=== PATIENT | female | born 1975 | race Caucasian/White ===

== ENCOUNTER 2017-06-08 11:15 | Day surgery (SDC) | payer OTHER, SELFPAY ==
[2017-06-08 11:36] VITALS: BP 120/53; PULSE 59; RESP 16; TEMP 36.3; O2SAT 100; BMI 27.4
--- NOTE | 2017-06-08 12:54 | PCM.DC.GS ---
Discharge Diet: No Restrictions Discharge Activity: May not drive while taking narcotic pain medications. May shower in (days): 2 Lifting Restrictions: no lifting >20 lb on right for 1 week Call your doctor if your incision/area has: Continuous Slow Oozing, Sudden Increased Bleeding, Increased Pain/ Swelling, Increased Redness, Foul Smelling Discharge, Swelling at the incision site Call your doctor if you observe: Fever of 101 or Higher Remove Dressing in (days):: 2 - We apply pressure dressing to the area daily for 2-3 more days Allergies/Adverse Reactions: Allergies No Known Allergies Allergy (Verified 06/01/17 08:36) Medications to take at Discharge Oxycodone HCl/Acetaminophen [Percocet 5/325] 1 - 2 tab PO Q6H PRN PRN 2 Days #5 tab 06/08/17 The following prescriptions were given: Oxycodone HCl/Acetaminophen [Percocet 5/325] 1 - 2 tab PO Q6H PRN PRN 2 Days #5 tab PRN Reason: Pain Primary Care Physician: Ryan Patel DO [Primary Care Provider] - Please Follow Up With: Sylvia March MD - After 5 PM and on the weekends call [phone] with any concerns When: Call the office tomorrow for a follow-up appointment in 2 weeks. Proposed Discharge Date: 06/08/17
[2017-06-08] MEDS: Cefazolin 2 GM in 0.9% Normal Saline 100 ML IV (13:00)
--- NOTE | 2017-06-08 13:00 | CYST_PTH ---
PATIENT: THELMA GARCIA [place] [facility] [place]#:[id number] AGE/SX: 41/F ROOM: RE06/08/[address]: Dr. Sylvia March MD : 1975 BED: DIS: 06/08/2017 SPEC #: [id number] RECD: 06/08/17 16:17 STATUS: TOMMY NADIA #: [id number] JUNE: 06/08/17 13:[address]: Sylvia March DEPT: SURGICAL PATHOLOGY RECD BY: James Frank ENTERED: 06/09/17 08:10 SP TYPE: Cyst OTHR DR: Dr. 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 SJ:padmini 06/10/17 MICROSCOPIC DESCRIPTION Slides are reviewed. GROSS DESCRIPTION Received in fixative is one container labeled with the patient's name and designated sebaceous cyst, neck posterior. The specimen consists of a burroughs-white cyst measuring 4.5 x 3.5 x 2.5 cm. Sections reveal the cyst is filled with burroughs-white to yellow cheesy material. Curing Oven Tender sections are submitted in one cassette. / GLORIA:padmini 06/09/17 TC:5 CPT: 87509
[2017-06-08] MEDS: Bupivacaine Mpf 0.5% 30 ML VIAL (13:40)
--- NOTE | 2017-06-08 13:47 | OP.PCM_ITS ---
Report of Operation Date of Procedure: 06/08/17 Pre-Operative Diagnosis: Subcutaneous mass of the right posterior neck Post-Operative Diagnosis: Sebaceous cyst of the right posterior neck Surgery/Procedure Performed:: Excision of sebaceous cyst of the right posterior neck learning and development associate: Julienne Orlando Type of Anesthesia:: MAC Anesthesiologist: Manjit Barrow Special Medications: Ancef 2 g IV ?1 Specimen's removed: Sebaceous cyst of the right posterior neck Estimated Blood Loss (mL): <10 cc Fluids Replaced: 1000 cc Description of Procedure: Patient was brought into the operating room and placed left lateral decubitus on operating table. A time-out was completed verifying correct patient, procedure, site, position and special equipment prior to beginning procedure. MAC anesthesia was induced. Right posterior inferior neck was prepped and draped in usual sterile fashion. Local anesthesia of 1% lidocaine with epinephrine and 0.5% Marcaine and 1:1 mixture was used for a total of 15 mL throughout the procedure. A incision along the lines and linger was planned overlying the subcutaneous mass. Prior to incision this area was infiltrated with local anesthesia. A 15 blade scalpel was used for incision. This was deepened with electrocautery and subcutaneous tissues. Sebaceous cyst was identified - measuring 6 cm x 3 cm x 3.5 cm. Hemostasis was achieved with electrocautery. Wound was irrigated with saline. Incision was closed with subdermal suture of 3-0 Vicryl interrupted and the skin was closed with 4-0 Monocryl interrupted sutures. Gauze and opsite were placed over the incision. Patient tolerated the procedure well and was taken to the postsurgical care unit in stable condition. - Complications none
[2017-06-08 14:08] VITALS: BP 111/61; BP 120/53; PULSE 72; RESP 16; TEMP 36.2; O2SAT 99
[2017-06-08 14:13] VITALS: BP 119/65; BP 120/53; PULSE 70; RESP 16; O2SAT 99
[2017-06-08 14:18] VITALS: BP 113/60; BP 120/53; PULSE 71; RESP 16; O2SAT 99
[2017-06-08 14:21] VITALS: BP 113/63; BP 120/53; PULSE 72; RESP 16; TEMP 36.3; O2SAT 100
[2017-06-08 14:49] VITALS: BP 120/53
== END 2017-06-08 14:55 | disposition home or self-care (01) ==
LOC: SDC 11:20 → AC 11:28
PROVIDERS: Family Provider Family Medicine; PCP Family Medicine; Visit Provider Surgery
PROC: (CPT 11426; principal; 2017-06-08 12:50)
DX: L72.0 Epidermal cyst (principal)
CPT/HCPCS: 11426; 88304; J7120

== ENCOUNTER → 2024-08-23 | Outpatient (CLI) | payer SELFPAY ==
--- NOTE | 2024-08-23 13:20 | US_ITS ---
EXAM: US Retroperitoneal Limited, Renal CLINICAL INDICATION: FLANK PAIN TECHNIQUE: Real-time limited ultrasound of the retroperitoneum with image documentation. COMPARISON: No relevant prior studies available. FINDINGS: RIGHT KIDNEY: Unremarkable. No stones. No hydronephrosis. The right kidney measures 11.2 x 6.7 x 4.5 cm. LEFT KIDNEY: Unremarkable. No stones. No hydronephrosis. The left kidney measures 11.1 x 4.9 x 5.3 cm. BLADDER: Urinary bladder appears normal. Prevoid volume 400 cc. Postvoid volume 106 cc. US/Kidney and Bladder IMPRESSION: Suggestion of urinary retention. Clinical correlation is recommended. Reading Location[facility]
--- NOTE | 2024-08-23 13:20 | US_ITS ---
EXAM: US Retroperitoneal Limited, Renal CLINICAL INDICATION: FLANK PAIN TECHNIQUE: Real-time limited ultrasound of the retroperitoneum with image documentation. COMPARISON: No relevant prior studies available. FINDINGS: RIGHT KIDNEY: Unremarkable. No stones. No hydronephrosis. The right kidney measures 11.2 x 6.7 x 4.5 cm. LEFT KIDNEY: Unremarkable. No stones. No hydronephrosis. The left kidney measures 11.1 x 4.9 x 5.3 cm. BLADDER: Urinary bladder appears normal. Prevoid volume 400 cc. Postvoid volume 106 cc. US/Kidney and Bladder IMPRESSION: Suggestion of urinary retention. Clinical correlation is recommended. Reading Location[facility]
== END | disposition home or self-care (01) ==
PROVIDERS: PCP Nurse Practitioner Family; Referring Provider Nurse Practitioner Family; Visit Provider Nurse Practitioner Family
DX: R10.9 Unspecified abdominal pain (principal)
CPT/HCPCS: 76770